=== PATIENT | female | born 1970 | race Caucasian/White ===

== ENCOUNTER 2023-10-08 00:08 | Emergency (ER) | payer OTHER, SELFPAY ==
[2023-10-08 00:28] VITALS: BP 148/96
[2023-10-08 01:12] VITALS: BMI 23.2
[2023-10-08 01:15] VITALS: BP 138/98
--- NOTE | 2023-10-08 01:31 | ED.GENMED ---
History of Present Illness
<BRIAN Smith - Last Filed: 10/08/23 03:28>
General
Chief Complaint: Headache
Source: patient
Exam Limitations: none
Time Seen by Provider: 10/08/23 01:12
Nursing documentation reviewed up to this point in time: agreed with
Travel History
Have you had any contact with someone who has COVID-19?: No
Do you have any symptoms of coronavirus? Fever > 100 degrees, chills, cough, shortness of breath, sore throat, loss of taste or smell, muscle aches, or headache?: No
History of Present Illness
History of Present Illness:
This is a 53 year old female, with a PMH of anxiety, who reports to the ED with her c/o FLORES x 1 day. Pt states she was diagnosed with the flu 5 days ago. She has had a fever, with a Tmax of 101, now resolved, as well as a productive cough,
sore throat, body aches, and dizziness. Pt states her symptoms were getting better and she was able to get out of bed today. She has also had a FLORES the whole week, but that was improving up until tonight. She states her headache is on the left side
of her forehead and radiates down to the back of her neck. It is exacerbated with movement, light, sound, and smell. She tried icing her head, which did help slightly. She has also been nauseous since the FLORES started. Pt started Tamiflu 3 days ago,
prescribed by her PCP. She has also been taking advil/tylenol which has not helped with her symptoms. Pt adds that she took a Xanax tonight to help her sleep but it did not help. She denies any vomiting, vision changes, abd pain, constipation,
diarrhea, CP, SOB, or loss of consciousness.
Pt denies any history of headaches or migraines. She notes she started effexor 2 months ago and has intermittently had a FLORES with nausea since starting. She denies any cigarette smoking or drug use, and drinks alcohol a couple of times a week.
Past History
<Merrick BRIAN Stoll - Last Filed: 10/08/23 03:28>
Past History
ED Past Medical History: Psychiatric (anxiety)
ED Past Surgical History: Other (hernia)
Patient has exhibited threatening behavior?: No
Social History
Tobacco: Non-smoker
Alcohol: Occasional
Drug: None
Personal:
Living: with family
Family History
Family History: CAD, Cancer (breast cancer in mother) and Other (migraines in sister); Negative Diabetes
Review of Systems
<MagedBRIAN Rahman - Last Filed: 10/08/23 03:28>
Review of Systems
Allergies reviewed?: Yes
All Other Systems: ROS reviewed and negative except as documented in HPI and ROS
Constitutional: Reports fever (resolved) and fatigue
EENT: Reports sore throat and runny nose
Respiratory: Reports cough; Denies trouble breathing
Cardiac: Reports no symptoms; Denies chest pain or syncope
ABD/GI: Reports nausea; Denies abdominal pain, vomiting, diarrhea or constipated
: Reports no symptoms
Musculoskeletal: Reports joint pain and muscle pain
Skin: Reports no symptoms
Neurological: Reports dizzy and headache
Phy Exam
<MagedBRIAN Rahman - Last Filed: 10/08/23 03:28>
General Physical Exam
General Presentation: no apparent distress
General age: appears stated age
General Skin: warm and dry
General Habitus: normal
General Mental: alert
General Hydration: appears well hydrated
ENT Exam
ENT Exam: pharynx normal, neck supple, normocephalic and swallowing well
Eye Exam
Eye Exam: PERRL and conjunctiva normal
Cardiovascular Exam
Cardiovascular Exam: regular rate/rhythm, no edema, no murmur and normal peripheral pulses
Heart Sounds: normal
Pulmonary Exam
Pulmonary Exam: lungs clear, no respiratory distress, no rales, no crackles, no rhonchi and no wheezing
Oxygen Status: room air
Gastrointestinal Exam
Gastrointestinal Exam: normal bowel sounds, non tender, soft and non distended
Palpation: generalized: No tenderness
Auscultation of Abdomen: normal
Neurological Exam
Neurological Exam: alert, oriented x3 and other (negative kernig's and brudzinski's signs)
Musculoskeletal Exam
Musculoskeletal Exam: full ROM and no edema
Skin Exam
Skin Exam: normal color and warm/dry
Psychiatric Exam
Psychiatric Exam: normal mood/affect
Course
<BRIAN Smith - Last Filed: 10/08/23 03:28>
Orders/Labs/Results
Orders:
Orders
10/08/23 01:15
CMP [Comprehensive Metabolic Panel] Urgent
Complete Blood Count/With Diff Urgent
10/08/23 01:59
CT Head W/o Iv Contrast Urgent
Comment:
Reason For Exam: headache
0.9% Sodium Chloride 1000 ml [Nss] 1,000 ml IV BOLUS
Ketorolac [Toradol] 30 mg IV NOW STA
Ondansetron Injectable [Zofran] 4 mg IV NOW STA
Abnormal Lab Results
10/08/23
01:15
RBC 4.07 L 10^6/uL
(4.20-5.40)
MCH 33.2 H pg
(27.0-31.0)
Chloride 109 H mmol/L
(98-107)
Creatinine 0.5 L mg/dL
(0.6-1.0)
Glucose 106 H mg/dl
(70-99)
10/08/23 01:15
10/08/23 01:15
Vital Signs
Initial and Last Documented VS:
Initial Vital Signs
Temp Pulse Resp BP Pulse Ox
98.3 F 75 16 148/96 97
10/08/23 00:28 10/08/23 00:28 10/08/23 00:28 10/08/23 00:28 10/08/23 00:28
Last Documented Vital Signs
Temp Pulse Resp BP Pulse Ox
98.3 F 75 16 143/97 95
10/08/23 00:28 10/08/23 00:28 10/08/23 00:28 10/08/23 02:00 10/08/23 02:15
<Quinton Yarbrough, DO - Last Filed: 10/08/23 03:33>
Orders/Labs/Results
Orders:
Orders
10/08/23 01:15
CMP [Comprehensive Metabolic Panel] Urgent
Complete Blood Count/With Diff Urgent
10/08/23 01:59
CT Head W/o Iv Contrast Urgent
Comment:
Reason For Exam: headache
0.9% Sodium Chloride 1000 ml [Nss] 1,000 ml IV BOLUS
Ketorolac [Toradol] 30 mg IV NOW STA
Ondansetron Injectable [Zofran] 4 mg IV NOW STA
Abnormal Lab Results
10/08/23
01:15
RBC 4.07 L 10^6/uL
(4.20-5.40)
MCH 33.2 H pg
(27.0-31.0)
Chloride 109 H mmol/L
(98-107)
Creatinine 0.5 L mg/dL
(0.6-1.0)
Glucose 106 H mg/dl
(70-99)
10/08/23 01:15
10/08/23 01:15
Vital Signs
Initial and Last Documented VS:
Initial Vital Signs
Temp Pulse Resp BP Pulse Ox
98.3 F 75 16 148/96 97
10/08/23 00:28 10/08/23 00:28 10/08/23 00:28 10/08/23 00:28 10/08/23 00:28
Last Documented Vital Signs
Temp Pulse Resp BP Pulse Ox
98.3 F 75 16 143/97 95
10/08/23 00:28 10/08/23 00:28 10/08/23 00:28 10/08/23 02:00 10/08/23 02:15
<Quinton Yarbrough DO - Last Filed: 10/08/23 03:33>
*Critical Care Note
Total Time (30-74mins, 75-104mins- exclusive of procedures): Not Applicable
<BRIAN Smith - Last Filed: 10/08/23 03:28>
Update Note
Update Note:
Pt feeling better, resting in room - both FLORES and nausea have improved
ED Attending Note
<BRIAN Smith - Last Filed: 10/08/23 03:28>
-
Portions of this chart may have been created with voice recognition software.� Occasional wrong word or��sound alike� substitutions may have occurred due to the inherent limitations of voice recognition software.
<Quinton Yarbrough DO - Last Filed: 10/08/23 03:33>
ED Attending Note
Patient seen and examined by attending physician: Yes
I performed the substantive portion of visit, reviewed & personally made and approve the management plan that is documented in note by myself or RAMYA.: Yes
ED Attending Note:
Seen with PA examined independently 53-year-old female recently diagnosed with the flu is feeling better with some Tylenol patient is eating today, went for a walk then developed a headache with some nausea no history of migraine though does have a
family history,
On exam she appears nontoxic she is afebrile no photophobia no pain with flexion of the neck lips are dry we will start some fluids Toradol Zofran screening CT of the head believe it is safe to hold off on LP at this time we will see how she does
with treatment
Discharge Plan
Departure
Patient Disposition: Home (Routine Discharge)
Date of Disposition: 10/08/23
Time of Disposition: 03:32
Patient with high blood pressure during this ER visit?: No
Condition: Good
Discharge Problem:
Headache
Instructions: Headache, Adult (DC)
Prescriptions:
New
ibuprofen 600 mg tablet
600 mg PO Q8H PRN (Reason: fever or pain) Qty: 20 0RF
ondansetron 4 mg tablet,disintegrating
4 mg PO TIDPRN PRN (Reason: nausea/vomiting) Qty: 10 0RF
No Action
alprazolam [Xanax] 0.5 mg Tablet
0.5 mg PO HS PRN (Reason: sleep)
venlafaxine [Effexor] 37.5 mg Tablet
37.5 mg PO DAILY
Referrals:
Sherin Raya MD [Family Provider] -
Interventions
Interventions:
*Risk Screen - Suicide Last Done: 10/08/23 01:12
*General Assessment Last Done: 10/08/23 01:12
*Neglect/Abuse Screening Last Done: 10/08/23 01:12
*ED COVID-19 Vaccine History Last Done: 10/08/23 01:12
ED- Neurological Assessment Last Done: 10/08/23 01:12
[2023-10-08 01:48] LABS: % Basophils 0.5 % (0-2); % Eosinophils 0.7 % (0-6); % Immature Granulocytes 0.2 % (0-0.5); % Lymphocytes 32.4 % (20.5-51.1); % Monocytes 5.2 % (1.7-9.3); Absolute Lymphocytes 1.9 10^3/uL (1.2-3.4); Absolute Monocytes 0.3 10^3/uL (0.1-0.6); Absolute Neutrophils 3.6 10^3/uL (1.4-6.5); Hematocrit 38.5 % (37.0-47.0); Hemoglobin 13.5 g/dL (12.0-16.0); Mean Corp Hgb Conc. 35.1 g/dL (33.0-37.0); Mean Corpuscular Hgb 33.2 pg (27.0-31.0); Mean Corpuscular Volume 94.6 fL (81.0-99.0); Mean Platelet Volume 9.6 fL (7.4-10.4); Nucleated Red Blood Cells % 0 %; Platelet Count 217 10^3/uL (130-400); Red Blood Cell Count 4.07 10^6/uL (4.20-5.40); Red Cell Dist. Width 12.8 % (11.5-14.5); White Blood Cell Count 5.8 10^3/uL (4.8-10.8)
[2023-10-08 02:00] VITALS: BP 143/97
[2023-10-08 02:00] LABS: ALT (SGPT) 17 U/L (0-35); AST (SGOT) 22 U/L (14-36); Alkaline Phosphatase 64 U/L (38-126); Blood Urea Nitrogen 12 mg/dl (7-17); Calcium 9.1 mg/dl (8.4-10.2); Carbon Dioxide 27 mmol/L (22-30); Chloride 109 mmol/L (98-107); Estimated Creatinine Clearance 85 ml/min; Glucose 106 mg/dl (70-99); Potassium 3.5 mmol/L (3.5-5.1); Sodium 139 mmol/L (135-145); Total Bilirubin 0.5 mg/dl (0.2-1.3); Total Protein 6.4 g/dl (6.3-8.2); eGFR > 60.00
[2023-10-08] MEDS: TORADOL 30 MG IV (02:05)
[2023-10-08] MEDS: ZOFRAN 4 MG IV (02:05)
[2023-10-08] MEDS: NSS 1000 IV (02:07)
[2023-10-08 03:49] VITALS: BP 140/94
== END 2023-10-08 04:16 | disposition home or self-care (01) ==
LOC: EMR 00:08
PROVIDERS: EMERGENCY PHYSICIAN Emergency Medicine; FAMILY PHYSICIAN Family Medicine
DX: R51.9 Headache, unspecified (principal)
CPT/HCPCS: 99284; 96374; 96375; 70450; 80053; 85025

== ENCOUNTER → 2024-03-29 13:49 | Outpatient (REF) | payer OTHER, SELFPAY | LOC: HWRAD 13:49 | PROVIDERS: ATTENDING PHYSICIAN Family Medicine | DX: R10.11 Right upper quadrant pain (principal) | CPT/HCPCS: 76700 ==

== ENCOUNTER → 2024-06-04 16:11 | Outpatient (REF) | payer OTHER, SELFPAY | LOC: HWWDC 16:11 | PROVIDERS: ATTENDING PHYSICIAN Obstetrics & Gynecology Gynecology; FAMILY PHYSICIAN Family Medicine | DX: Z12.31 Encounter for screening mammogram for malignant neoplasm of breast (principal) | CPT/HCPCS: 77063; 77067 ==

== ENCOUNTER → 2024-10-08 16:24 | Outpatient (REF) | payer OTHER, SELFPAY | LOC: RAD 16:24 | PROVIDERS: ATTENDING PHYSICIAN Internal Medicine; FAMILY PHYSICIAN Family Medicine | DX: D17.71 Benign lipomatous neoplasm of kidney (principal) | CPT/HCPCS: 76775 ==

== ENCOUNTER → 2024-10-22 07:46 | Outpatient (REF) | payer OTHER, SELFPAY | LOC: RAD 07:46 | PROVIDERS: ATTENDING PHYSICIAN Internal Medicine Gastroenterology; FAMILY PHYSICIAN Family Medicine | DX: R10.11 Right upper quadrant pain (principal) | CPT/HCPCS: 78226; A9537 ==

== ENCOUNTER → 2025-06-05 16:39 | Outpatient (REF) | payer OTHER, SELFPAY | LOC: WDC 16:39 | PROVIDERS: ATTENDING PHYSICIAN Obstetrics & Gynecology Gynecology; FAMILY PHYSICIAN Family Medicine | DX: Z12.31 Encounter for screening mammogram for malignant neoplasm of breast (principal) | CPT/HCPCS: 77063; 77067 ==